=== PATIENT | male | born 1975 | race African-American/Black ===

== ENCOUNTER 2017-08-13 14:04 | Emergency (ER) | payer OTHER ==
[2017-08-13 14:34] LABS: #Eosinphils 0.1 thou/uL (0.0-0.7); #Lymphocytes 2.6 thou/uL (1.20-3.40); #Monocytes 0.4 thou/uL (0.11-0.59); #Neutrophils 3.1 thou/uL (1.40-6.50); %Basophils 0.7 % (0.0-1.0); %Eosinophils 0.9 % (0.0-10.0); %Lymphocytes 42.2 % (21.0-51.0); %Monocytes 6.9 % (0.0-10.0); Hematocrit 47.6 % (42.0-52.0); Mean Platelet Volume 6.4 fL (7.4-10.4); Red Blood Cell (RBC) Count 5.16 mill/uL (4.70-6.10); White Blood Cell (WBC) Count 6.2 thou/uL (4.8-10.8)
[2017-08-13 14:54] LABS: Bilirubin Negative (Negative); Blood, Urine Negative (Negative); Glucose, Urine (Dipstick) Negative (Negative); Ketone, Urine Negative (Negative); Nitrite Negative (Negative); Protein, Urine (Dipstick) 30 mg/dL (Neg-Trace)
[2017-08-13 14:55] LABS: Bacteria/HPF None Seen HPF (None Seen); Hyaline Casts/LPF 0-3 HYALINE CAST LPF (0-3 Hyaline); Squamous Epithelial 0-3 HPF (0-3); WBC/HPF 21-50 HPF (0-3)
[2017-08-13 14:58] LABS: ALT (SGPT) 18 U/L (8-55); AST (SGOT) 15 U/L (5-34); Acetaminophen Less than 6.0 mcg/mL (10.0-30.0); Alkaline Phosphatase 68 U/L (40-150); Anion Gap 10 mmol/L (10-20); BUN (Urea Nitrogen) 7 mg/dL (8.9-20.6); CK (CPK) 239 U/L (30-200); Calc. Creatinine Clearance 0 mL/min (70-130); Calcium 11.5 mg/dL (7.8-10.44); Carbon Dioxide 25 mmol/L (22-29); Chloride 105 mmol/L (98-107); Estimated GFR-MDRD Greater than 90; Globulin 3.3 g/dL (2.4-3.5); Protein, Total 7.5 g/dL (6.0-8.3); Salicylate Less than 8.0 mg/dL (15.0-30.0)
[2017-08-13 15:04] LABS: Amphetamine Not Detected (NotDetected); Methadone Not Detected (NotDetected); Methamphetamine Not Detected (NotDetected)
== END 2017-08-13 15:10 | disposition home or self-care (01) ==
LOC: ERS 14:04
DX: F43.20 Adjustment disorder, unspecified (principal); F32.9 Major depressive disorder, single episode, unspecified; F20.9 Schizophrenia, unspecified; F17.210 Nicotine dependence, cigarettes, uncomplicated
CPT/HCPCS: 36415; 80053; 80306; 80307; 81003; 81015; 82550; 84443; 85025; 93005

== ENCOUNTER 2017-11-02 08:15 | Emergency (ER) | payer OTHER ==
[2017-11-02] MEDS ORDERED: Bacitracin Zinc 1 Packet ONE (09:33)
== END 2017-11-02 09:39 | disposition home or self-care (01) ==
LOC: ERS 08:15
DX: S90.121A Contusion of right lesser toe(s) without damage to nail, initial encounter (principal); L03.115 Cellulitis of right lower limb; F20.9 Schizophrenia, unspecified; F32.9 Major depressive disorder, single episode, unspecified; F17.210 Nicotine dependence, cigarettes, uncomplicated; W22.03XA Walked into furniture, initial encounter; Y93.9 Activity, unspecified
CPT/HCPCS: 99283

== ENCOUNTER 2018-02-03 13:45 | Emergency (ER) | payer OTHER | END 2018-02-03 15:25 | disposition home or self-care (01) | LOC: ERS 13:45 | DX: L72.3 Sebaceous cyst (principal); F20.9 Schizophrenia, unspecified; F32.9 Major depressive disorder, single episode, unspecified; F17.210 Nicotine dependence, cigarettes, uncomplicated | CPT/HCPCS: 99406 ==

== ENCOUNTER 2018-03-30 12:33 | Emergency (ER) | payer OTHER | END 2018-03-30 13:14 | disposition home or self-care (01) | LOC: ERS 12:33 | DX: L72.3 Sebaceous cyst (principal); F41.9 Anxiety disorder, unspecified; F31.9 Bipolar disorder, unspecified; F17.210 Nicotine dependence, cigarettes, uncomplicated; Z71.6 Tobacco abuse counseling | CPT/HCPCS: 99406 ==

== ENCOUNTER 2018-05-26 18:23 | Emergency (ER) | payer OTHER | END 2018-05-26 19:40 | disposition home or self-care (01) | LOC: ERS 18:23 | DX: B86 Scabies (principal); B07.9 Viral wart, unspecified; Z71.6 Tobacco abuse counseling; F41.9 Anxiety disorder, unspecified; F31.9 Bipolar disorder, unspecified; F20.9 Schizophrenia, unspecified; F17.210 Nicotine dependence, cigarettes, uncomplicated | CPT/HCPCS: 99406 ==

== ENCOUNTER 2018-06-11 07:36 | Emergency (ER) | payer OTHER ==
[2018-06-11 08:07] LABS: #Basophils 0.1 thou/uL (0.0-0.2); #Lymphocytes 2.1 thou/uL (1.20-3.40); #Monocytes 0.3 thou/uL (0.11-0.59); #Neutrophils 3.6 thou/uL (1.40-6.50); %Basophils 1.1 % (0.0-1.0); %Eosinophils 0.7 % (0.0-10.0); %Lymphocytes 34.5 % (21.0-51.0); %Monocytes 5.2 % (0.0-10.0); %Neutrophils 58.5 % (42.0-75.0); Mean Corpuscular HGB CONC 35.3 g/dL (32.0-36.0); Mean Corpuscular Hemoglobin 31.7 pg (27.0-31.0); Mean Corpuscular Volume 89.8 fL (78.0-98.0); Mean Platelet Volume 6.6 fL (7.4-10.4); Platelet Count 264 thou/uL (130-400); RBC Distribution Width 12.2 % (11.5-14.5); Red Blood Cell (RBC) Count 5.05 mill/uL (4.70-6.10); White Blood Cell (WBC) Count 6.1 thou/uL (4.8-10.8)
== END 2018-06-11 10:15 | disposition home or self-care (01) ==
LOC: ERS 07:36
DX: R53.1 Weakness (principal); F32.9 Major depressive disorder, single episode, unspecified; F17.210 Nicotine dependence, cigarettes, uncomplicated
CPT/HCPCS: 36415; 85025; 99284

== ENCOUNTER 2018-08-23 17:17 | Emergency (ER) | payer OTHER ==
[2018-08-23] MEDS ORDERED: Adacel (T-DAP) 0.5 ML VIAL ONE (18:12)
[2018-08-23] MEDS ORDERED: Ketorolac Tromethamine 30 MG/ML VIAL ONE (18:12)
[2018-08-23] MEDS ORDERED: Lidocaine 1% (PF) 30 ML VIAL ONE (18:24)
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
[2018-08-23] MEDS ORDERED: Bacitracin Zinc 1 Packet ONE (19:05)
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
== END 2018-08-23 20:00 | disposition home or self-care (01) ==
LOC: ERS 17:17
DX: S01.111A Laceration without foreign body of right eyelid and periocular area, initial encounter (principal); S05.12XA Contusion of eyeball and orbital tissues, left eye, initial encounter; S05.11XA Contusion of eyeball and orbital tissues, right eye, initial encounter; H11.32 Conjunctival hemorrhage, left eye; F17.210 Nicotine dependence, cigarettes, uncomplicated; Y04.2XXA Assault by strike against or bumped into by another person, initial encounter
CPT/HCPCS: 12011; 70450; 70486; 71045; 72125; 90471; 90715; 96374; G0390; J1885; J2001

== ENCOUNTER 2019-03-31 09:58 | Observation (INO) | payer OTHER ==
[2019-03-31 13:14] LABS: Hemoglobin 14.8 g/dL (14.0-18.0); Mean Corpuscular HGB CONC 34.1 g/dL (32.0-36.0); Mean Corpuscular Hemoglobin 30.8 pg (27.0-31.0); Mean Corpuscular Volume 90.2 fL (78.0-98.0); Mean Platelet Volume 8.3 fL (7.4-10.4); Platelet Count 231 thou/uL (130-400); RBC Distribution Width 12.3 % (11.5-14.5); White Blood Cell (WBC) Count 5.7 thou/uL (4.8-10.8)
[2019-03-31 13:34] LABS: ALT (SGPT) 23 U/L (8-55); AST (SGOT) 14 U/L (5-34); Albumin 4.3 g/dL (3.5-5.0); Alkaline Phosphatase 75 U/L (40-150); Anion Gap 11 mmol/L (10-20); BUN (Urea Nitrogen) 10 mg/dL (8.9-20.6); Bilirubin, Total 0.5 mg/dL (0.2-1.2); Calc. Creatinine Clearance 0 mL/min (70-130); Carbon Dioxide 24 mmol/L (22-29); Chloride 106 mmol/L (98-107); Estimated GFR-MDRD Greater than 90; Glucose 134 mg/dL (70-105); Potassium 4.3 mmol/L (3.5-5.1); Protein, Total 7.3 g/dL (6.0-8.3); Sodium 137 mmol/L (136-145)
[2019-03-31 13:43] LABS: Calcium 12.6 mg/dL (7.8-10.44)
[2019-03-31 13:46] LABS: Band 1 % (5-11); Eosinophils 1 % (0-10); Lymphocytes 56 % (21-51); MDiff Complete? YES; Monocytes 7 % (0-10); Neutrophil 34 % (42-75); Platelet Morphology Comment Appears Adequate
--- NOTE | 2019-03-31 14:06 | CT ---
CT OF HEAD NONCONTRAST: INDICATION: Facial numbness. COMPARISON: 08/23/2018 exam. FINDINGS: Stable size of the ventricular system. 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 There is no intracranial hemorrhage or intraaxial mass effect. Imaged pa ranasal sinuses are clear. IMPRESSION: 1. No acute intracranial hemorrhage or mass effect. 2. Incidental note of cavum velum interpositum versus interpositum cyst. This may be further evalua yohan with followup pre- and postcontrast brain MRI on a nonemergent basis. CODE T POS: [facility]
[2019-03-31] MEDS ORDERED: Ondansetron ODT 4 MG TAB PO PRN (16:35)
[2019-03-31] MEDS ORDERED: Ondansetron PF 4 MG/2 ML Vial IVP PRN (16:35)
[2019-03-31] MEDS ORDERED: Acetaminophen 325 MG TAB PO PRN (16:35)
[2019-03-31] MEDS ORDERED: Acetaminophen 650 MG Suppository PR PRN (16:35)
[2019-03-31 20:04] LABS: Troponin I Less than 0.010 ng/mL (< 0.028)
[2019-03-31] MEDS: Sodium Chloride 0.9% 1,000 ML IV SCH ×2 (20:35→23:24)
--- NOTE | 2019-03-31 20:35 | PDOC.EVN ---
Addendum - Attending - Attending Attestation Date/Time: 03/31/192021 I personally evaluated the patient and discussed the management with Dr. Laurent/ Sherley Please refer to Resident HX and Physical in separate document 44 yo AA male with c/o left sided facial numbness today after eating BBQ patient was concerned he was having a CVA . Patient with current nonfocal Neurological exam he c/o head fullness and notes right posterior cystic neck mass with he has had for months without any recent changes was scheduled for outpt US and potential Biopsy verse I&D pending further imaging. Patient with notable hypercalcemia EKG with nonspecific ST changes. BP elevated diastolic in 110s. will plain observation and r/o primary hyperparathyroidism start BP meds diuretic and CCB if needed . do not feel patient with CVA and will hydrate and trend Calcium levels.
[2019-03-31 23:07] LABS: Troponin I Less than 0.010 ng/mL (< 0.028)
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
[2019-04-01 06:21] LABS: #Eosinphils 0.1 thou/uL (0.0-0.7); #Lymphocytes 2.4 thou/uL (1.20-3.40); #Monocytes 0.4 thou/uL (0.11-0.59); %Basophils 0.5 % (0.0-1.0); %Eosinophils 1.9 % (0.0-10.0); %Lymphocytes 49.1 % (21.0-51.0); %Monocytes 8.7 % (0.0-10.0); %Neutrophils 39.8 % (42.0-75.0); Hemoglobin 15.8 g/dL (14.0-18.0); Mean Corpuscular HGB CONC 33.6 g/dL (32.0-36.0); Mean Corpuscular Hemoglobin 30.6 pg (27.0-31.0); Mean Corpuscular Volume 91.2 fL (78.0-98.0); Mean Platelet Volume 7.6 fL (7.4-10.4); Platelet Count 271 thou/uL (130-400); RBC Distribution Width 12.4 % (11.5-14.5); Red Blood Cell (RBC) Count 5.17 mill/uL (4.70-6.10)
[2019-04-01 06:27] LABS: ALT (SGPT) 21 U/L (8-55); AST (SGOT) 14 U/L (5-34); Alkaline Phosphatase 92 U/L (40-150); Anion Gap 11 mmol/L (10-20); BUN (Urea Nitrogen) 8 mg/dL (8.9-20.6); Bilirubin, Total 0.4 mg/dL (0.2-1.2); Calc. Creatinine Clearance 191 mL/min (70-130); Calcium 11.8 mg/dL (7.8-10.44); Carbon Dioxide 21 mmol/L (22-29); Cardiac Risk 3.8 (Less than 4.5); Chloride 109 mmol/L (98-107); Cholesterol 140 mg/dl (< 200 Desired); Estimated GFR-MDRD Greater than 90; Globulin 3.2 g/dL (2.4-3.5); Glucose 119 mg/dL (70-105); HDL Cholesterol 37 mg/dL (>60 Neg Risk); LDL Cholesterol, Calculated 78 mg/dL; Potassium 4.7 mmol/L (3.5-5.1); Protein, Total 7.2 g/dL (6.0-8.3); Sodium 136 mmol/L (136-145); Triglycerides 127 mg/dL (Less than 150)
[2019-04-01] MEDS: Sodium Chloride 0.9% 1,000 ML IV SCH (07:48)
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
[2019-04-01 11:34] VITALS: BP 142/94; TEMP 98.1
[2019-04-01] MEDS ORDERED: Atorvastatin Calcium 10 MG TAB PO SCH (21:00)
--- NOTE | 2019-04-02 11:17 | EKG ---
Test Reason : NOT FEELING WELL Blood Pressure : / mmHG Vent. Rate : 055 BPM Atrial Rate : 055 BPM P-R Int : 176 ms QRS Dur : 098 ms QT Int : 362 ms P-R-T Axes : 000 197 172 degrees QTc Int : 346 ms Sinus bradycardia with Premature atrial complexes Probable arm lead reversal please repeat EKG Poor anterior R wave progression anterior STT changes most c/w repolarization variant, cannot r/o early acute changes Abnormal ECG Confirmed by DR. Ryan ORELLANA ([id number]) on 04/02/2019 11:17:51 AM Referred By: HENRI KOROMA Confirmed By:DR. Ryan ORELLANA
== END 2019-04-01 13:00 | disposition home or self-care (01) ==
LOC: ERS 09:58 → 2SE 17:53
PROVIDERS: ADMIT Family Medicine; ATTEND Family Medicine
DX: E21.3 Hyperparathyroidism, unspecified (principal); R20.0 Anesthesia of skin; F20.9 Schizophrenia, unspecified; R20.2 Paresthesia of skin; R22.1 Localized swelling, mass and lump, neck
CPT/HCPCS: 36415; 70450; 80053; 80061; 82306; 83970; 84484; 85025; 93005; 96360; 96361; G0378

== ENCOUNTER 2019-04-14 16:33 | Emergency (ER) | payer OTHER ==
[2019-04-14 17:35] LABS: Hemoglobin 16.1 g/dL (14.0-18.0); Mean Corpuscular HGB CONC 33.2 g/dL (32.0-36.0); Mean Corpuscular Hemoglobin 30.1 pg (27.0-31.0); Mean Corpuscular Volume 90.5 fL (78.0-98.0); Red Blood Cell (RBC) Count 5.34 mill/uL (4.70-6.10); White Blood Cell (WBC) Count 5.4 thou/uL (4.8-10.8)
[2019-04-14 17:59] LABS: ALT (SGPT) 19 U/L (8-55); AST (SGOT) 15 U/L (5-34); Albumin 4.3 g/dL (3.5-5.0); Alkaline Phosphatase 85 U/L (40-150); Anion Gap 13 mmol/L (10-20); BUN (Urea Nitrogen) 9 mg/dL (8.9-20.6); Bilirubin, Total 0.6 mg/dL (0.2-1.2); Calc. Creatinine Clearance 0 mL/min (70-130); Calcium 11.9 mg/dL (7.8-10.44); Carbon Dioxide 23 mmol/L (22-29); Chloride 106 mmol/L (98-107); Estimated GFR-MDRD Greater than 90; Globulin 3.2 g/dL (2.4-3.5); Glucose 104 mg/dL (70-105); Potassium 4.8 mmol/L (3.5-5.1); Protein, Total 7.5 g/dL (6.0-8.3); Sodium 137 mmol/L (136-145)
[2019-04-14 18:01] LABS: Band 4 % (5-11); Lymphocytes 53 % (21-51); MDiff Complete? YES; Mean Platelet Volume 7.3 fL (7.4-10.4); Monocytes 3 % (0-10); Neutrophil 35 % (42-75); Platelet Count 288 thou/uL (130-400); Platelet Morphology Comment Appears Adequate; Polychromasia SLIGHT = 2-3 cells (100X) (0-2/hpf); Reactive Lymphocytes 4 % (0-10)
--- NOTE | 2019-04-14 18:09 | CT ---
CT BRAIN WITHOUT CONTRAST: 04/14/19 HISTORY: Left sided facial numbness and headache. FINDINGS: Comparison made with exam of 03/31/19. No evidence of acute infarct, hemorrhage, midline shift, or abnormal extra-axial fluid collections se en. The ventricular size is stable and the basilar cisterns patent. Cavum velum interpositum versus velum interpositum cyst is again demonstrated. The bony calvarium is intact. The visualized paranasal sinuses and mastoid air cells are well aerated. IMPRESSION: Stable exam. No CT evidence of acute intracranial process. POS: [facility]
== END 2019-04-14 19:17 | disposition home or self-care (01) ==
LOC: ERS 16:33
DX: E83.52 Hypercalcemia (principal); F41.9 Anxiety disorder, unspecified; F31.9 Bipolar disorder, unspecified; F20.9 Schizophrenia, unspecified; Z87.891 Personal history of nicotine dependence
CPT/HCPCS: 36415; 70450; 80053; 84484; 85025

== ENCOUNTER 2019-05-21 07:49 | Emergency (ER) | payer OTHER ==
--- NOTE | 2019-05-21 08:28 | RAD ---
XR Chest Pa Lat STANDARD History: Chest pain Comparison: Radiograph 2006 Findings: Lungs are clear. No pneumothorax. No effusion. Cardiac silhouette and mediastinal contours are within normal limits. No acute osseous abnormality. Impression: No acute intrathoracic abnormality.
--- NOTE | 2019-05-21 08:29 | RAD ---
XR Neck Soft Tissue History: Pain. Comparison: None. Findings: No fracture. No malalignment. Partial ossification anterior disc osteophyte complex at mult iple levels. No radiopaque foreign object. No prevertebral soft tissue swelling. Impression: No soft tissue abnormality appreciated.
== END 2019-05-21 09:04 | disposition home or self-care (01) ==
LOC: ERS 07:49
DX: J39.2 Other diseases of pharynx (principal); F31.9 Bipolar disorder, unspecified; F20.9 Schizophrenia, unspecified; F41.9 Anxiety disorder, unspecified; Z87.891 Personal history of nicotine dependence
CPT/HCPCS: 70360; 71046; 93005

== ENCOUNTER 2019-09-12 13:13 | Emergency (ER) | payer OTHER | END 2019-09-12 14:03 | disposition home or self-care (01) | LOC: ERS 13:13 | DX: R20.2 Paresthesia of skin (principal); M62.838 Other muscle spasm; K59.00 Constipation, unspecified; H61.21 Impacted cerumen, right ear; E66.9 Obesity, unspecified | CPT/HCPCS: 99281 ==

== ENCOUNTER 2019-09-18 14:41 | Emergency (ER) | payer OTHER ==
[2019-09-18 15:28] LABS: Bacteria/HPF None Seen HPF (None Seen); Bilirubin Negative (Negative); Blood, Urine Negative (Negative); Clarity Clear (Clear); Glucose, Urine (Dipstick) Normal (Negative); Leukocyte 250 Leu/uL (Negative); Nitrite Negative (Negative); Protein, Urine (Dipstick) 20 mg/dL (Neg-Trace); RBC/HPF 0-3 HPF (0-3); Squamous Epithelial 0-3 HPF (0-3)
--- NOTE | 2019-09-18 16:22 | RAD ---
RIGHT WRIST THREE VIEWS: HISTORY: Wrist pain. FINDINGS: Joint spaces are well preserved. There are no signs of fracture or other bony findings. IMPRESSION: Negative right wrist. POS: [facility]
[2019-09-18] MEDS ORDERED: cefTRIAXone\\ROCEPHIN 250 MG VIAL ONE (18:20)
[2019-09-18] MEDS ORDERED: Azithromycin 250 MG TAB ONE (18:20)
[2019-09-18] MEDS ORDERED: Lidocaine 1% (PF) 30 ML VIAL ONE (18:21)
[2019-09-20 21:21] LABS: Chlam.trachomatis by PCR,Urine Not Detected (NotDetected)
== END 2019-09-18 18:53 | disposition home or self-care (01) ==
LOC: ERS 14:41
DX: S63.501A Unspecified sprain of right wrist, initial encounter (principal); N39.0 Urinary tract infection, site not specified; X50.9XXA Other and unspecified overexertion or strenuous movements or postures, initial encounter
CPT/HCPCS: 81003; 81015; 87491; 87591; 96372; J0696; J2001

== ENCOUNTER 2019-09-24 12:06 | Emergency (ER) | payer OTHER | END 2019-09-24 13:00 | disposition home or self-care (01) | LOC: ERS 12:06 | DX: S63.501A Unspecified sprain of right wrist, initial encounter (principal); J06.9 Acute upper respiratory infection, unspecified; F20.9 Schizophrenia, unspecified; X58.XXXA Exposure to other specified factors, initial encounter | CPT/HCPCS: 99283 ==

== ENCOUNTER 2020-01-12 13:42 | Emergency (ER) | payer OTHER ==
[2020-01-12 14:30] LABS: Hemoglobin 15.9 g/dL (14.0-18.0); Mean Corpuscular HGB CONC 34.4 g/dL (32.0-36.0); Mean Corpuscular Hemoglobin 31.2 pg (27.0-31.0); Mean Corpuscular Volume 90.7 fL (78.0-98.0); Platelet Count 282 thou/uL (130-400); Red Blood Cell (RBC) Count 5.09 mill/uL (4.70-6.10)
[2020-01-12] MEDS ORDERED: Acetaminophen 500 MG TAB ONE (14:40)
--- NOTE | 2020-01-12 14:45 | RAD ---
PORTABLE CHEST: HISTORY: Chest pain. FINDINGS: Heart size is within normal limits for portable technique. Mediastinal structures are unremarkable. The lungs are clear of infiltrates. IMPRESSION: No active intrathoracic disease. POS: [facility]
[2020-01-12 14:48] LABS: ALT (SGPT) 20 U/L (8-55); AST (SGOT) 17 U/L (5-34); Albumin 4.4 g/dL (3.5-5.0); Alkaline Phosphatase 83 U/L (40-110); Anion Gap 12 mmol/L (10-20); BUN (Urea Nitrogen) 8 mg/dL (8.9-20.6); Band 4 % (5-11); Bilirubin, Total 0.5 mg/dL (0.2-1.2); CK (CPK) 256 U/L (30-200); Calc. Creatinine Clearance 0 mL/min (70-130); Calcium 11.1 mg/dL (7.8-10.44); Carbon Dioxide 25 mmol/L (22-29); Chloride 103 mmol/L (98-107); Eosinophils 1 % (0-10); Estimated GFR-MDRD Greater than 90; Globulin 3.2 g/dL (2.4-3.5); Glucose 103 mg/dL (70-105); Lymphocytes 30 % (21-51); MDiff Complete? YES; Monocytes 7 % (0-10); Neutrophil 29 % (42-75); Platelet Morphology Comment Appears Adequate; Polychromasia SLIGHT = 2-3 cells (100X) (0-2/hpf); Potassium 4.3 mmol/L (3.5-5.1); Protein, Total 7.6 g/dL (6.0-8.3); Reactive Lymphocytes 29 % (0-10); Sodium 136 mmol/L (136-145)
--- NOTE | 2020-01-15 01:33 | EKG ---
Test Reason : Blood Pressure : / mmHG Vent. Rate : 070 BPM Atrial Rate : 070 BPM P-R Int : 164 ms QRS Dur : 088 ms QT Int : 374 ms P-R-T Axes : 037 -07 021 degrees QTc Int : 403 ms Normal sinus rhythm with sinus arrhythmia Minimal voltage criteria for LVH, may be normal variant Borderline ECG Confirmed by ALECIA TREADWELL ([id number]), dictionary editor SUNDAR DUTTA ([id number]) on 01/15/2020 1:32:48 AM Referred By: Confirmed By:ALECIA Guerrero
== END 2020-01-12 15:22 | disposition home or self-care (01) ==
LOC: ERS 13:42
DX: R07.89 Other chest pain (principal); F20.9 Schizophrenia, unspecified
CPT/HCPCS: 36415; 71045; 80053; 82550; 84484; 85025; 93005

== ENCOUNTER 2020-03-08 13:17 | Emergency (ER) | payer OTHER ==
--- NOTE | 2020-03-08 13:48 | RAD ---
Chest one view HISTORY: Chest pain. COMPARISON: 01/12/2020. FINDINGS: Cardiac silhouette is magnified and upper limits of normal in size. Shallow inspiration acc entuates pulmonary markings. Mediastinum is midline. No lobar consolidation or evidence of pneumothorax. general maintenance mechanic leads overlie the chest. IMPRESSION : No active cardiopulmonary abnormalities are demonstrated.
[2020-03-08 13:50] LABS: #Basophils 0.1 thou/uL (0.0-0.2); #Eosinphils 0.1 thou/uL (0.0-0.7); #Lymphocytes 2.2 thou/uL (1.20-3.40); #Monocytes 0.5 thou/uL (0.11-0.59); #Neutrophils 2.7 thou/uL (1.40-6.50); %Basophils 1.4 % (0.0-1.0); %Eosinophils 1.1 % (0.0-10.0); %Lymphocytes 39.6 % (21.0-51.0); %Monocytes 9.4 % (0.0-10.0); %Neutrophils 48.5 % (42.0-75.0); Hemoglobin 14.5 g/dL (14.0-18.0); Mean Corpuscular HGB CONC 33.8 g/dL (32.0-36.0); Mean Corpuscular Hemoglobin 30.3 pg (27.0-31.0); Mean Corpuscular Volume 89.6 fL (78.0-98.0); Mean Platelet Volume 6.9 fL (7.4-10.4); Platelet Count 285 thou/uL (130-400); Red Blood Cell (RBC) Count 4.81 mill/uL (4.70-6.10); White Blood Cell (WBC) Count 5.5 thou/uL (4.8-10.8)
[2020-03-08 14:11] LABS: ALT (SGPT) 21 U/L (8-55); AST (SGOT) 15 U/L (5-34); Albumin 4.4 g/dL (3.5-5.0); Alkaline Phosphatase 69 U/L (40-110); Anion Gap 11 mmol/L (10-20); BUN (Urea Nitrogen) 8 mg/dL (8.9-20.6); Bilirubin, Total 0.6 mg/dL (0.2-1.2); CK (CPK) 321 U/L (30-200); Calc. Creatinine Clearance 0 mL/min (70-130); Calcium 11.1 mg/dL (7.8-10.44); Carbon Dioxide 25 mmol/L (22-29); Chloride 104 mmol/L (98-107); Estimated GFR-MDRD Greater than 90; Glucose 111 mg/dL (70-105); Lipase 11 U/L (8-78); Protein, Total 7.4 g/dL (6.0-8.3); Sodium 136 mmol/L (136-145)
[2020-03-08 17:20] LABS: Troponin I Less than 0.010 ng/mL (< 0.028)
--- NOTE | 2020-03-09 15:19 | EKG ---
Test Reason : Blood Pressure : / mmHG Vent. Rate : 055 BPM Atrial Rate : 055 BPM P-R Int : 164 ms QRS Dur : 088 ms QT Int : 406 ms P-R-T Axes : 033 -06 003 degrees QTc Int : 388 ms Sinus bradycardia Minimal voltage criteria for LVH, may be normal variant Borderline ECG Confirmed by ALECIA TREADWELL ([id number]), writer editor SUNDAR DUTTA ([id number]) on 03/09/2020 3:19:00 PM Referred By: Confirmed By:ALECIA Guerrero
--- NOTE | 2020-03-14 15:18 | EKG ---
Test Reason : Blood Pressure : / mmHG Vent. Rate : 061 BPM Atrial Rate : 061 BPM P-R Int : 174 ms QRS Dur : 090 ms QT Int : 378 ms P-R-T Axes : 025 -13 003 degrees QTc Int : 380 ms Normal sinus rhythm Minimal voltage criteria for LVH, may be normal variant Borderline ECG Confirmed by TYSON BOONE M.D. ([id number]), news assignment editor SUNDAR DUTTA ([id number]) on 03/14/2020 3:18:31 PM Referred By: Confirmed By:TYSON BOONE M.D.
== END 2020-03-08 18:05 | disposition home or self-care (01) ==
LOC: ERS 13:17
DX: R07.9 Chest pain, unspecified (principal); Z20.828 Contact with and (suspected) exposure to other viral communicable diseases; F32.9 Major depressive disorder, single episode, unspecified; F41.9 Anxiety disorder, unspecified; F20.9 Schizophrenia, unspecified; Z87.891 Personal history of nicotine dependence
CPT/HCPCS: 36415; 71045; 80053; 82550; 83690; 83880; 84484; 85025; 85379; 87635; 93005; U0002

== ENCOUNTER 2020-03-09 07:08 | Emergency (ER) | payer OTHER | END 2020-03-09 07:59 | disposition home or self-care (01) | LOC: ERS 07:08 | DX: F20.9 Schizophrenia, unspecified (principal); F41.9 Anxiety disorder, unspecified; F32.9 Major depressive disorder, single episode, unspecified; Z87.891 Personal history of nicotine dependence | CPT/HCPCS: 99284 ==

== ENCOUNTER 2020-04-17 14:28 | Emergency (ER) | payer OTHER ==
[2020-04-17 15:56] LABS: #Eosinphils 0.1 thou/uL (0.0-0.7); #Lymphocytes 2.1 thou/uL (1.20-3.40); #Monocytes 0.4 thou/uL (0.11-0.59); #Neutrophils 3.2 thou/uL (1.40-6.50); %Basophils 0.5 % (0.0-1.0); %Eosinophils 1.3 % (0.0-10.0); %Lymphocytes 36.1 % (21.0-51.0); %Monocytes 7.5 % (0.0-10.0); %Neutrophils 54.6 % (42.0-75.0); Mean Corpuscular HGB CONC 35.5 g/dL (32.0-36.0); Mean Corpuscular Hemoglobin 31.7 pg (27.0-31.0); Mean Corpuscular Volume 89.2 fL (78.0-98.0); Mean Platelet Volume 7.1 fL (7.4-10.4); Platelet Count 282 thou/uL (130-400); RBC Distribution Width 12.5 % (11.5-14.5); Red Blood Cell (RBC) Count 4.74 mill/uL (4.70-6.10); White Blood Cell (WBC) Count 5.8 thou/uL (4.8-10.8)
[2020-04-17 16:18] LABS: ALT (SGPT) 20 U/L (8-55); AST (SGOT) 16 U/L (5-34); Albumin 4.2 g/dL (3.5-5.0); Alkaline Phosphatase 69 U/L (40-110); Anion Gap 9 mmol/L (10-20); BUN (Urea Nitrogen) 10 mg/dL (8.9-20.6); Bilirubin, Total 0.8 mg/dL (0.2-1.2); Calc. Creatinine Clearance 0 mL/min (70-130); Carbon Dioxide 23 mmol/L (22-29); Chloride 105 mmol/L (98-107); Estimated GFR-MDRD Greater than 90; Globulin 3.3 g/dL (2.4-3.5); Glucose 127 mg/dL (70-105); Lipase 11 U/L (8-78); Potassium 3.8 mmol/L (3.5-5.1); Protein, Total 7.5 g/dL (6.0-8.3); Sodium 133 mmol/L (136-145)
--- NOTE | 2020-04-17 16:23 | ULT ---
ULTRASOUND ABDOMEN LIMITED: (RIGHT UPPER QUADRANT) DATE: 04/17/2020 HISTORY: 45-year-old male with right upper quadrant abdominal pain FINDINGS: Gallbladder:Not sufficiently distended. No mural thickening or pericholecystic fluid. Numerous puncta te hyperechoic foci in proximal body. Uncertain whether this represents tiny gallstones on the order of 1 to 2 mm in size each, or artifact or echogenic sludge. Common duct: 4 mm. Liver:Echogenicity within normal limits. Pancreas:Tail obscured by shadowing from bowel gas. Right kidney:No hydronephrosis. IMPRESSION: 1. No sonographic evidence of acute cholecystitis. 2. Uncertainty regarding presence or absence of cholelithiasis
== END 2020-04-17 16:46 | disposition home or self-care (01) ==
LOC: ERS 14:28
DX: S39.012A Strain of muscle, fascia and tendon of lower back, initial encounter (principal); F41.9 Anxiety disorder, unspecified; R10.11 Right upper quadrant pain; F32.9 Major depressive disorder, single episode, unspecified; F20.9 Schizophrenia, unspecified; Z87.891 Personal history of nicotine dependence; X50.0XXA Overexertion from strenuous movement or load, initial encounter
CPT/HCPCS: 36415; 76705; 80053; 83690; 84443; 85025

== ENCOUNTER 2020-05-17 21:33 | Emergency (ER) | payer OTHER ==
[2020-05-17 22:37] LABS: Acetaminophen Less than 6.0 mcg/mL (10.0-30.0); Alcohol 139 mg/dL (Less than 10); Salicylate Less than 8.0 mg/dL (15.0-30.0)
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
[2020-05-17 22:38] LABS: ALT (SGPT) 53 U/L (8-55); AST (SGOT) 32 U/L (5-34); Albumin 4.5 g/dL (3.5-5.0); Alkaline Phosphatase 102 U/L (40-110); Anion Gap 17 mmol/L (10-20); BUN (Urea Nitrogen) 9 mg/dL (8.9-20.6); Bilirubin, Total 0.3 mg/dL (0.2-1.2); Calc. Creatinine Clearance 0 mL/min (70-130); Calcium 8.8 mg/dL (7.8-10.44); Carbon Dioxide 21 mmol/L (22-29); Chloride 106 mmol/L (98-107); Estimated GFR-MDRD 80; Glucose 96 mg/dL (70-105); Potassium 3.6 mmol/L (3.5-5.1); Protein, Total 7.5 g/dL (6.0-8.3); Sodium 140 mmol/L (136-145)
[2020-05-17 22:46] LABS: #Lymphocytes 1.3 thou/uL (1.20-3.40); #Monocytes 0.3 thou/uL (0.11-0.59); #Neutrophils 2.8 thou/uL (1.40-6.50); %Basophils 0.8 % (0.0-1.0); %Eosinophils 0.9 % (0.0-10.0); %Lymphocytes 28.9 % (21.0-51.0); %Monocytes 7.3 % (0.0-10.0); %Neutrophils 62.1 % (42.0-75.0); Hemoglobin 13.9 g/dL (14.0-18.0); Mean Corpuscular HGB CONC 33.8 g/dL (32.0-36.0); Mean Corpuscular Hemoglobin 31.2 pg (27.0-31.0); Mean Corpuscular Volume 92.3 fL (78.0-98.0); Mean Platelet Volume 9.9 fL (7.4-10.4); Platelet Count 145 thou/uL (130-400); RBC Distribution Width 12.1 % (11.5-14.5); Red Blood Cell (RBC) Count 4.46 mill/uL (4.70-6.10); White Blood Cell (WBC) Count 4.5 thou/uL (4.8-10.8)
[2020-05-17 23:01] LABS: CKMB 1.2 ng/mL (0-6.6)
[2020-05-17 23:15] LABS: Bacteria/HPF None Seen HPF (None Seen); Bilirubin Negative (Negative); Blood, Urine Negative (Negative); Clarity Clear (Clear); Glucose, Urine (Dipstick) Normal (Negative); Ketone, Urine Trace mg/dL (Negative); Leukocyte Negative Leu/uL (Negative); Nitrite Negative (Negative); Protein, Urine (Dipstick) 30 mg/dL (Neg-Trace); RBC/HPF 0-3 HPF (0-3); Specific Gravity, Urine 1.021 (1.002-1.036); Squamous Epithelial 0-3 HPF (0-3); Urobilinogen Normal mg/dL (Less than 2); WBC/HPF 0-3 HPF (0-3); pH, Urine 5.5 (5.0-9.0)
[2020-05-17 23:21] LABS: Amphetamine Not Detected (NotDetected); Barbiturates Screen Not Detected (NotDetected); Benzodiazepine Screen Not Detected (NotDetected); Cocaine Metabolite Screen Not Detected (NotDetected); Medtox Control Line Valid? VALID (VALID); Medtox Reader # READER 4; Methadone Not Detected (NotDetected); Methamphetamine Not Detected (NotDetected); Opiate Screen Not Detected (NotDetected); Oxycodone Screen Not Detected (NotDetected); Phencyclidine (PCP) Not Detected (NotDetected); THC/Cannabinoid Screen Detected (NotDetected); Tricyclic Screen Not Detected (NotDetected)
[2020-05-18 02:10] LABS: Troponin I 0.021 ng/mL (< 0.028)
== END 2020-05-18 02:40 | disposition home or self-care (01) ==
LOC: ERS 21:33
DX: F12.10 Cannabis abuse, uncomplicated (principal); F10.129 Alcohol abuse with intoxication, unspecified; Y90.6 Blood alcohol level of 120-199 mg/100 ml; R47.81 Slurred speech; R41.82 Altered mental status, unspecified; F41.9 Anxiety disorder, unspecified; F20.9 Schizophrenia, unspecified; Z87.891 Personal history of nicotine dependence
CPT/HCPCS: 36415; 70450; 80053; 80306; 80307; 81003; 81015; 82553; 83605; 84484; 85025; 93005; 96360; 96361

== ENCOUNTER 2022-11-17 11:48 | Emergency (ER) | payer OTHER | END 2022-11-17 12:12 | LOC: ERS 11:48 | DX: Z02.9 Encounter for administrative examinations, unspecified (principal) | CPT/HCPCS: 99283 ==

== ENCOUNTER 2023-11-18 13:33 | Outpatient (CLI) | payer OTHER | END 2023-11-18 13:34 | disposition home or self-care (01) | LOC: BICRAD 13:33 | PROVIDERS: ATTEND Student in an Organized Health Care Education/Training Program | DX: M54.50 Low back pain, unspecified (principal); M25.532 Pain in left wrist; G95.29 Other cord compression | CPT/HCPCS: 72100 ==

== ENCOUNTER 2024-04-12 03:53 | Emergency (ER) | payer OTHER ==
[2024-04-12 04:22] LABS: #Basophils Less than 0.03 10x3/uL (0.0-0.2); %Basophils 0.3 % (0.0-1.0); %Eosinophils 0.8 % (0.0-10.0); %Lymphocytes 36.7 % (21.0-51.0); %Monocytes 6.4 % (0.0-10.0); %Neutrophils 55.6 % (42.0-75.0); Hematocrit 44.6 % (42.0-52.0); Hemoglobin 15.8 g/dL (14.0-18.0); Mean Corpuscular HGB CONC 35.4 g/dL (32.0-36.0); Mean Corpuscular Hemoglobin 31.2 pg (27.0-31.0); Mean Platelet Volume 9.2 fL (7.4-10.4); Platelet Count 263 10x3/uL (130-400); RBC Distribution Width 13.3 % (11.5-14.5); Red Blood Cell (RBC) Count 5.07 mill/uL (4.70-6.10)
[2024-04-12] MEDS ORDERED: risperiDONE 1 MG TAB ONE (04:34)
[2024-04-12 04:47] LABS: ALT (SGPT) 20 U/L (8-55); AST (SGOT) 19 U/L (5-34); Acetaminophen Less than 10 mcg/mL (10.0-30.0); Albumin 4.4 g/dL (3.5-5.0); Alcohol Less than 10.0 mg/dL (Less than 10); Alkaline Phosphatase 79 U/L (40-110); Anion Gap 13 mmol/L (10-20); BUN (Urea Nitrogen) 7 mg/dL (8.9-20.6); Bilirubin, Total 1.3 mg/dL (0.2-1.2); Calc. Creatinine Clearance 0 mL/min (70-130); Calcium 11.4 mg/dL (7.8-10.44); Carbon Dioxide 25 mmol/L (22-29); Chloride 106 mmol/L (98-107); Estimated GFR 109; Globulin 3.7 g/dL (2.4-3.5); Glucose 106 mg/dL (70-105); Potassium 4.1 mmol/L (3.5-5.1); Protein, Total 8.1 g/dL (6.0-8.3); Salicylate Less than 8.0 mg/dL (15.0-30.0); Sodium 140 mmol/L (136-145)
[2024-04-12 04:53] LABS: Troponin I Less than 0.010 ng/mL (< 0.028)
[2024-04-12 08:10] LABS: Amphetamine Not Detected (NotDetected); Barbiturates Screen Not Detected (NotDetected); Benzodiazepine Screen Not Detected (NotDetected); Cocaine Metabolite Screen Not Detected (NotDetected); Methadone Not Detected (NotDetected); Methamphetamine Not Detected (NotDetected); Opiate Screen Not Detected (NotDetected); Oxycodone Screen Not Detected (NotDetected); Phencyclidine (PCP) Not Detected (NotDetected); THC/Cannabinoid Screen Not Detected (NotDetected); Tricyclic Screen Not Detected (NotDetected)
== END 2024-04-12 07:40 ==
LOC: ERS 03:53
DX: F22 Delusional disorders (principal); R03.0 Elevated blood-pressure reading, without diagnosis of hypertension; E83.52 Hypercalcemia; R74.01 Elevation of levels of liver transaminase levels; E11.9 Type 2 diabetes mellitus without complications; I10 Essential (primary) hypertension
CPT/HCPCS: 36415; 71045; 80053; 80306; 80307; 83880; 84484; 85025; 93005

== ENCOUNTER 2024-05-05 01:17 | Emergency (ER) | payer OTHER | END 2024-05-05 02:01 | disposition home or self-care (01) | LOC: ERS 01:17 | DX: Z00.00 Encounter for general adult medical examination without abnormal findings (principal); F17.210 Nicotine dependence, cigarettes, uncomplicated | CPT/HCPCS: 99283 ==

== ENCOUNTER 2024-08-14 03:27 | Emergency (ER) | payer OTHER ==
[2024-08-14] MEDS ORDERED: Fluorescein Opthalmic Strip ONE (04:21)
[2024-08-14] MEDS ORDERED: Proparacaine 0.5% Opth 15 ML BOT ONE (04:25)
== END 2024-08-14 04:52 | disposition home or self-care (01) ==
LOC: ERS 03:27
DX: S05.02XA Injury of conjunctiva and corneal abrasion without foreign body, left eye, initial encounter (principal); I10 Essential (primary) hypertension; E11.9 Type 2 diabetes mellitus without complications; F17.210 Nicotine dependence, cigarettes, uncomplicated; X58.XXXA Exposure to other specified factors, initial encounter; Y93.89 Activity, other specified
CPT/HCPCS: 99283

== ENCOUNTER 2024-08-15 15:18 | Emergency (ER) | payer OTHER | END 2024-08-15 15:36 | disposition left against medical advice (07) | LOC: ERS 15:18 | DX: Z53.21 Procedure and treatment not carried out due to patient leaving prior to being seen by health care provider (principal) ==

== ENCOUNTER 2024-11-24 22:21 | Emergency (ER) | payer OTHER ==
[2024-11-24] MEDS ORDERED: Dexamethasone 10 MG/ML VIAL ONE (23:27)
== END 2024-11-24 23:48 | disposition home or self-care (01) ==
LOC: ERS 22:21
DX: R21 Rash and other nonspecific skin eruption (principal); E11.9 Type 2 diabetes mellitus without complications; I10 Essential (primary) hypertension; F17.210 Nicotine dependence, cigarettes, uncomplicated
CPT/HCPCS: 99282; J1100

== ENCOUNTER 2025-05-14 23:27 | Emergency (ER) | payer MEDICAID | END 2025-05-15 00:32 | disposition home or self-care (01) | LOC: ERS 23:27 | DX: Z77.098 Contact with and (suspected) exposure to other hazardous, chiefly nonmedicinal, chemicals (principal); E11.9 Type 2 diabetes mellitus without complications; I10 Essential (primary) hypertension; F17.290 Nicotine dependence, other tobacco product, uncomplicated; Z79.899 Other long term (current) drug therapy | CPT/HCPCS: 93005; 99283 ==

== ENCOUNTER 2025-08-08 13:32 | Outpatient (CLI) | payer MEDICAID | END 2025-08-08 13:33 | disposition home or self-care (01) | LOC: ULT 13:32 | PROVIDERS: ATTEND Family Medicine | DX: R22.1 Localized swelling, mass and lump, neck (principal) | CPT/HCPCS: 76536 ==